=== PATIENT | male | born 1945 | race Caucasian/White ===

== ENCOUNTER → 2017-07-30 10:05 | Outpatient (CLI) | payer MEDICARE, OTHER, SELFPAY ==
[2017-07-30 11:05] LABS: BUN Creatinine Ratio 22.2 (6-22); Blood Urea Nitrogen 20 mg/dL (9-20); Calcium 9.3 mg/dL (8.4-10.2); Carbon Dioxide 30 mmol/L (22-32); Chloride 101 mmol/L (98-107); Estimated Glomerular Filt Rate > 60.0 mL/min (>60); Glucose 81 mg/dL (80-110); HEMOLYSIS < 15 (0-50); Potassium 4.7 mmol/L (3.4-5.1); Sodium 141 mmol/L (137-145)
== END ==
PROVIDERS: Family Provider Internal Medicine Cardiovascular Disease; Visit Provider Nurse Practitioner Family
DX: Z51.81 Encounter for therapeutic drug level monitoring (principal); Z79.899 Other long term (current) drug therapy
CPT/HCPCS: 36415; 80048

== ENCOUNTER → 2017-09-07 12:40 | Outpatient (CLI) | payer MEDICARE, OTHER, SELFPAY ==
[2017-09-07 15:29] LABS: Prothrombin Time 21.9 SECONDS (10.1-12.7)
== END ==
PROVIDERS: Family Provider Internal Medicine Cardiovascular Disease; Visit Provider Internal Medicine Cardiovascular Disease
DX: I48.0 Paroxysmal atrial fibrillation (principal)
CPT/HCPCS: 36415; 85610

== ENCOUNTER → 2018-01-04 16:33 | Outpatient (CLI) | payer MEDICARE, OTHER, SELFPAY ==
[2018-01-04 17:50] LABS: Blood Urea Nitrogen 27 mg/dL (9-20); Calcium 9.6 mg/dL (8.4-10.2); Carbon Dioxide 29 mmol/L (22-32); Chloride 102 mmol/L (98-107); Estimated Glomerular Filt Rate > 60.0 mL/min (>60); Glucose 90 mg/dL (80-110); HEMOLYSIS < 15 (0-50); Potassium 4.6 mmol/L (3.4-5.1); Sodium 142 mmol/L (137-145)
== END ==
PROVIDERS: Family Provider Internal Medicine Cardiovascular Disease; Visit Provider Nurse Practitioner Family
DX: Z51.81 Encounter for therapeutic drug level monitoring (principal); Z79.899 Other long term (current) drug therapy
CPT/HCPCS: 36415; 80048

== ENCOUNTER → 2018-11-09 13:52 | Outpatient (CLI) | payer MEDICARE, OTHER, SELFPAY ==
[2018-11-09 15:02] LABS: B Type Natriuretic Peptide 102 (<100)
[2018-11-09 15:04] LABS: BUN Creatinine Ratio 22.2 (6-22); Blood Urea Nitrogen 20 mg/dL (9-20); Calcium 9.4 mg/dL (8.4-10.2); Carbon Dioxide 28 mmol/L (22-32); Chloride 102 mmol/L (98-107); Estimated Glomerular Filt Rate > 60.0 mL/min (>60); Glucose 91 mg/dL (80-110); HEMOLYSIS 17 (0-50); Potassium 4.3 mmol/L (3.4-5.1); Sodium 140 mmol/L (137-145)
== END ==
PROVIDERS: Visit Provider Nurse Practitioner Family
DX: I50.23 Acute on chronic systolic (congestive) heart failure (principal)
CPT/HCPCS: 36415; 80048; 83880

== ENCOUNTER → 2018-12-02 10:15 | Outpatient (CLI) | payer MEDICARE, OTHER, SELFPAY ==
[2018-12-02 11:53] LABS: BUN Creatinine Ratio 29.2 (6-22); Blood Urea Nitrogen 35 mg/dL (9-20); Calcium 9.5 mg/dL (8.4-10.2); Carbon Dioxide 33 mmol/L (22-32); Chloride 98 mmol/L (98-107); Glucose 87 mg/dL (80-110); HEMOLYSIS < 15 (0-50); Sodium 138 mmol/L (137-145)
== END ==
PROVIDERS: Visit Provider Nurse Practitioner Family
DX: I50.33 Acute on chronic diastolic (congestive) heart failure (principal)
CPT/HCPCS: 36415; 80048

== ENCOUNTER → 2019-04-07 14:37 | Outpatient (CLI) | payer MEDICARE, OTHER, SELFPAY ==
[2019-04-07 15:26] LABS: BUN Creatinine Ratio 27.3 (6-22); Blood Urea Nitrogen 30 mg/dL (9-20); Calcium 9.5 mg/dL (8.4-10.2); Carbon Dioxide 29 mmol/L (22-32); Chloride 103 mmol/L (98-107); Estimated Glomerular Filt Rate > 60.0 mL/min (>60); Glucose 100 mg/dL (80-110); HEMOLYSIS < 15 (0-50); Potassium 4.2 mmol/L (3.4-5.1); Sodium 140 mmol/L (137-145)
== END ==
PROVIDERS: PCP Family Medicine; Referring Provider Nurse Practitioner Family; Visit Provider Nurse Practitioner Family
DX: Z51.81 Encounter for therapeutic drug level monitoring (principal); Z79.899 Other long term (current) drug therapy
CPT/HCPCS: 36415; 80048

== ENCOUNTER → 2019-11-23 11:39 | Outpatient (CLI) | payer MEDICARE, OTHER, SELFPAY ==
[2019-11-23 13:49] LABS: BUN Creatinine Ratio 22.5 (6-22); Blood Urea Nitrogen 23 mg/dL (9-20); Carbon Dioxide 32 mmol/L (22-32); Chloride 100 mmol/L (98-107); Estimated Glomerular Filt Rate > 60.0 mL/min (>60); Glucose 117 mg/dL (80-110); HEMOLYSIS < 15 (0-50); Potassium 4.3 mmol/L (3.4-5.1); Sodium 138 mmol/L (137-145)
== END ==
PROVIDERS: PCP Family Medicine; Referring Provider Nurse Practitioner Family; Visit Provider Nurse Practitioner Family
DX: Z51.81 Encounter for therapeutic drug level monitoring (principal); Z79.899 Other long term (current) drug therapy
CPT/HCPCS: 36415; 80048

== ENCOUNTER → 2019-12-27 11:47 | Outpatient (CLI) | payer MEDICARE, OTHER, SELFPAY ==
[2019-12-29 14:09] LABS: SARS CoV19 IgG Negative (Negative)
== END ==
PROVIDERS: PCP Family Medicine; Referring Provider Family Medicine; Visit Provider Family Medicine
DX: J40 Bronchitis, not specified as acute or chronic (principal)
CPT/HCPCS: 36415; 86769

== ENCOUNTER → 2020-01-02 14:32 | Outpatient (CLI) | payer MEDICARE, OTHER, SELFPAY ==
--- NOTE | 2020-01-02 14:33 | DI.US.S_ITS ---
PROCEDURE: US CAROTID DOPPLER BI INDICATIONS: DIZZINESS TECHNIQUE: Color and pulse Doppler interrogation was performed of both carotid systems, with image documentation and velocity measurements. COMPARISON: [facility], CT, CT HEAD/BRAIN WO CON, 01/02/2020, 14:34. FINDINGS: Stenosis calculations are based on SRU (Society of Radiologists in Ultrasound) criteria. The flow velocities and the arterial waveforms are normal within both carotid arterial systems. Atherosclerotic plaque is seen on both sides. The estimated degree of internal carotid artery stenosis is less than 50%. Antegrade flow is confirmed within both vertebral arteries. IMPRESSION: No hemodynamically significant stenosis is seen. Atherosclerotic plaque is noted bilaterally. Dictated by: Luiz Gant M.D. on 01/02/2020 at 15:12 Approved by: Luiz Gant M.D. on 01/02/2020 at 15:13
--- NOTE | 2020-01-02 14:35 | DI.CT.S_ITS ---
PROCEDURE: CT HEAD/BRAIN WO CON INDICATIONS: Progressive balance disorder, and increasing labyrinthitis w TECHNIQUE: Noncontrast 4.5 mm thick angled axial sections acquired from the foramen magnum to the vertex, with coronal and sagittal reformats. For radiation dose reduction, the following was used: automated exposure control, adjustment of mA and/or kV according to patient size. COMPARISON: [facility], CT, SINUS SCREEN WO CONTRAST, 12/21/2012, 8:52. FINDINGS: Image quality: Excellent. CSF spaces: Basal cisterns are patent. No extra-axial fluid collections. The ventricles are symmetric in size and shape. Brain: No intracranial bleeds or masses. There is cerebral volume loss for age, with resultant ventricular and sulcal prominence. There are periventricular and deep white matter chronic small vessel ischemic changes. There is intracranial internal carotid artery atherosclerosis. Skull and face: Calvarium and visualized facial bones appear intact, without suspicious lesions. Sinuses: Mucous retention cysts are seen within the right maxillary sinus. Visualized sinuses and mastoids are otherwise clear. IMPRESSION: Unremarkable intracranial study for age. If it would be helpful for clinical management decision making, please consider a dedicated brain MRI for further evaluation (assuming that there is no contraindication). Dictated by: Luiz Gant M.D. on 01/02/2020 at 13:52 Approved by: Luiz Gant M.D. on 01/02/2020 at 13:54
== END ==
PROVIDERS: PCP Family Medicine; Referring Provider Family Medicine; Visit Provider Family Medicine
DX: I65.23 Occlusion and stenosis of bilateral carotid arteries (principal); R42 Dizziness and giddiness; H83.09 Labyrinthitis, unspecified ear; R26.89 Other abnormalities of gait and mobility
CPT/HCPCS: 70450; 93880

== ENCOUNTER 2020-02-01 10:30 | Outpatient (RCR) | payer MEDICARE, OTHER, SELFPAY ==
--- NOTE | 2020-01-25 13:27 | PT.OIE ---
Current Diagnoses Other abnormalities of gait and mobility (01/25/20) Past Medical History (Last Updated 12/27/19 @ 16:21 by Kranthi Salcedo DO) Balance disorder Bronchitis Chicken pox History of atrial fibrillation Hypertension Osteoarthritis Visual changes Past Surgical History (Last Updated 03/27/19 @ 21:33 by Shelby Ren) Anesthesia History of cardiac radiofrequency ablation Visit Care Team Role Provider Type Kranthi Salcedo DO Attending Provider Physician Primary Care Provider Referring Provider Specialty: [facility] Address: [address] [place] [address], [facility] Email: [email or web address] Physical Therapy Initial Evaluation PT-OP-A Visit Information Start: 01/25/20 07:23 Freq: Status: Active Protocol: Document 01/25/20 09:07 MB (Rec: 01/25/20 09:33 MB [id number]) Out-Patient Physical Therapy Visit Information Visit Information Visit Type Initial Evaluation Visit Note Medicare Physcial Therapy Visit Start Time 09:07 Visit Stop Time 09:45 Total Visit Minutes 38 Visit Number 1 Evaluation Information Evaluation Date 01/25/20 PT-OP-B Current Condition Start: 01/25/20 07:23 Freq: Status: Active Protocol: Document 01/25/20 09:07 MB (Rec: 01/25/20 09:33 MB [id number]) Current Condition History of Current Condition Onset Date February 2019 Current Complaints Imbalance History of Current Condition In February of 2019, pt had an extreme case of severe bronchitis. He could not lie down to sleep. His coughing happened if he went to lie down. He took antibiotics for 1 week. Since then, he has had balance trouble. If he is walking downhill or uphill, it affects him. If he closes his eyes to take his sweatshirt off, his balance is off. If he goes to look up to the stars, he gets imbalanced. Pt had a COVID antibody test that was negative. He remembers sitting near a lady coughing at a restaurant in January. He has had some further hearing and vision changes since the February event. Pt has fallen a couple of times because his balance was off. He fell in the bushes. He has had 2 falls in the past six months. Four years ago, he had a fall and hit his left hip. He has arthritis and no other injury. Further PMH: a- fib, CHF, short-term memory trouble, pt takes Warfarin, Metroprolol, Doletilide. He had two cardiac ablations d/t a-fib, SOB. Pt states that his BP can run low and he checks his weight each morning. Pt reports occ pelvic area pain when walking and knee arthritis. The pain gets better when he warms up with walking most of the time. Pt denies: prostate issues, history of concussion and whiplash, performance of sit- ups, anemia, B12 deficiency, overhead lifting, eye pressure changes, chiropractor treatment, headache, TMD, neck pain. Pt reports: occ numbness and tingling in the bottom of his feet when he is reclining, pt thinks that his hearing and vision have changed (maybe more since February) as well as progressive memory issues, ear pressure, hearing heart beat in left ear, sinus/ allergy issues, overall weakness and needs a nap after eight hours d/t lack of energy, trouble swallowing for 1-2 years, occ left ear aches . Pt states that he has never had a neurology work-up for his symptoms. Pt states that he is supposed to return to ENT to get shots in his ears to help with the balance problem. Treatment Goals Patient/Caregiver Goals To get my balance better. PT-OP-C Subjective Start: 01/25/20 07:23 Freq: Status: Active Protocol: Document 01/25/20 09:07 MB (Rec: 01/25/20 09:33 MB [id number]) OP-PT Subjective Patient Comments Patient Comments See history of current condition PT-OP-D Balance Start: 01/25/20 07:23 Freq: Status: Active Protocol: Document 01/25/20 09:07 MB (Rec: 01/25/20 10:10 MB [id number]) OP-PT Balance Assessment Sitting Balance Static Sitting Balance Ability Normal Dynamic Sitting Balance Ability Good Sitting Balance Comments Pt uses UE support to scoot to EOB Standing Balance Static Standing Balance Ability Good Dynamic Standing Balance Ability Good Balance Tests Other Other Balance Tests Performed Romberg EO and EC no LOB, more sway with EC. Pt is able to initiate Tandem gait without ataxia and is imbalanced with it Kenney Fall Scale Copyright Permission PT-OP-H Neuro Start: 01/25/20 10:10 Freq: Status: Active Protocol: Document 01/25/20 09:07 MB (Rec: 01/25/20 10:14 MB [id number]) Coordination Evaluation Comments Coordination Comments B rapid pronation and supination WNLs and B heel to tejeda WNLs Vital Signs Comments Vital Signs Comments Orthostatic assessment with BP and HR measured in left brachial artery: supine 128/75 , 52; standing 131/73, 56; standing 30 sec: 123/83, 71; standing 1' 127/77, 55. Pt does not report that he is light-headed with testing PT-OP-J Posture/Palpation/Skin Start: 01/25/20 07:23 Freq: Status: Active Protocol: Document 01/25/20 09:07 MB (Rec: 01/25/20 10:10 MB [id number]) Posture Evaluation Comments Posture Comments Forward head, rounded shoulders PT-OP-K Range of Motion Start: 01/25/20 07:23 Freq: Status: Active Protocol: Document 01/25/20 09:07 MB (Rec: 01/25/20 10:10 MB [id number]) Cervical Spine Range of Motion Cervical Spine Active Testing Position Standing Comments Observed with standing balance today--pt is not stiff with his neck with scanning, talking and mobility and will further address possible cervicogenic components to symptomology in future treatments Shoulder Goniometric Range of Motion Shoulder Left Shoulder ROM WFL Yes Testing Position Standing Comments Functional shoulder flexion is normal B Right Shoulder ROM WFL Yes Testing Position Standing Comments Functional shoulder flexion is normal B Elbow/Forearm Range of Motion Elbow/Forearm Left Elbow/Forearm ROM WFL Yes ROM Testing Position Standing Right Elbow/Forearm ROM WFL Yes ROM Testing Position Standing PT-OP-M Strength Start: 01/25/20 07:23 Freq: Status: Active Protocol: Document 01/25/20 09:07 MB (Rec: 01/25/20 10:10 MB [id number]) Shoulder Strength Shoulder Manual Muscle Testing Left Flexion 3+ Fair+ Right Flexion 3+ Fair+ Knee Strength Knee Manual Muscle Testing Left Flexion (S2) 4 Good Extension (L3) 5 Normal Right Flexion (S2) 4 Good Extension (L3) 5 Normal Ankle/Foot Strength Ankle and Foot Manual Muscle Testing Left Dorsiflexion (L4) 4 Good Right Dorsiflexion (L4) 4 Good PT-OP-O Vestibular Start: 01/25/20 10:10 Freq: Status: Active Protocol: Document 01/25/20 09:07 MB (Rec: 01/25/20 10:11 MB [id number]) Vestibular Assessment Visual Testing Smooth Pursuits Horizontal Normal Smooth Pursuits Vertical Normal Gaze Evoked Nystagmus With Fixation Negative Spontaneous Nystagmus Negative PT-OP-T Assessment and Plan Start: 01/25/20 07:23 Freq: Status: Active Protocol: Document 01/25/20 09:07 MB (Rec: 01/25/20 10:10 MB [id number]) Physical Therapy Assessment Rehab Potential Rehabilitation Potential Fair Evaluation Complexity Number of Personal Factors/Comorbidities 0 Number of Body Systems Impaired 1-2 Clinical Presentation at Evaluation Evolving Impairments Impairments Activity Tolerance,Balance, Functional Activities, Functional Mobility,Gait,Pain, Posture,Soft Tissue Mobility, Strength,Vestibular,Visual Motor Other Impairments Body systems affected include cardiopulmonary, vestibular, and musculoskeletal. His clinical presentation is evolving in setting of cardiac disease. Other Concerns Fall Risk Yes Goals 4 Halfway Goal (LTG) Pt will perform progressive HEP with I including VOR, balance, gait, visual motor, relaxation, postural and flexibility exercises to improve balance and function by 03/27/2020. LTG Duration 8 weeks 3 Settlement Agent Goal (LTG) Pt will gait train at least 1500 feet in 6 minutes to improve ability to walk for exercise and decrease fall risk by 03/27/2020. LTG Duration 8 weeks 2 Halfway Goal (LTG) Pt will peform WNLs on a standardized balance test to decrease fall risk by 03/27/2020 . LTG Duration 8 weeks 1 Halfway Goal (LTG) Pt will deny falls for 2 months to decrease injury risk by 03/27/2020. LTG Duration 8 weeks Assessment Summary Assessment Pt is a 74 y/o male presenting with reports of imbalance since a bad respiratory infection in February (11 months ago). He reports he was dx with bronchitis and treated with anti-biotics. He is concerned that he might have had COVID given severity of the illness and residual symptoms. The symptoms include worsening vision, hearing, memory and imbalance. He reports some vision and memory decline prior the the illness in February and attributes the imbalance to the February illness. He has a history of a -fib, cardiac ablation and CHF and states that he checks his weight and BP daily. His BP can run very low. He is not on fluid restrictions and does take several cardiac medications. Pt's clinical presentation is complicated and so PT evaluation is triaged this date. This therapist suspected orthostasis to be a contributer to his symptoms in the setting of his complaints of generalized weakness and fatigue and reports of heart failure and low BP. Orthostatic testing is negative. This therapist has not yet treated a post-COVID patient and so no clinical frame of reference to those complaints. Pt did also state that his antibody testing was negative, though it was only recently checked. PT will perform further cervical and vestibular screens in future treatments. Oculomotor screen for smooth pursuits was negative, his strength is equally weak in shoulders and his coordination testing is normal today. PT is concerned about reports of fatigue, low/ fluctuating BP, vision changes , trouble swallowing and with memory and wonders if further neurological work-up may be beneficial in the future to rule out things such as PD, as deemed appropriate by referring provider. PT will perform ongoing functional testing including balance, VOR , BPPV and cervicogenic testing and address functional findings as appropriate. The pt will benefit from PT to improve balance, posture and gait and to address any vestibular, visual motor and cervical issues if found. Functional prognosis is fair. He has many medical co- morbidities contributing to his presentation. Physical Therapy Plan Frequency and Duration Frequency of Treatment 2x/Week Duration of Treatment 8 weeks Plan of Care Start Date 01/25/20 Plan of Care End Date 03/27/20 Therapeutic Interventions Therapeutic Interventions Balance Training,Canalithic Repositioning,Coordination Training,Gait Training,Home Exercise Program,Joint Mobilizations,Manual Therapy, Neuromuscular Re-education, Patient/Caregiver Education, Self-Care/Home Management, Sensory Integration,Soft Tissue Mobilization,Taping, Therapeutic Activities, Therapeutic Exercises, Vestibular Rehabilitation Modalities Cold Pack/Ice Massage,Electric Stimulation,Hot Packs, Ultrasound Next Visit Focus/Plan Next Note Type Treatment Note Next Visit Plan Further oculomotor and vestibular testing, ongoing neurological screening as appropriate, formalized balance testing, perhaps FGA
--- NOTE | 2020-01-30 11:21 | PT.OTN ---
Current Diagnoses Other abnormalities of gait and mobility (01/30/20) Physical Therapy Treatment Note PT-OP-A Visit Information Start: 01/25/20 07:23 Freq: Status: Active Protocol: Document 01/30/20 08:17 MB (Rec: 01/30/20 09:40 MB [id number]) Out-Patient Physical Therapy Visit Information Visit Information Visit Type Treatment Note Visit Start Time 08:17 Visit Stop Time 09:40 Total Visit Minutes 83 Visit Number 2 PT-OP-B Current Condition Start: 01/25/20 07:23 Freq: Status: Active Protocol: Document 01/25/20 09:07 MB (Rec: 01/25/20 09:33 MB [id number]) Current Condition History of Current Condition Onset Date February 2019 Current Complaints Imbalance History of Current Condition In February of 2019, pt had an extreme case of severe bronchitis. He could not lie down to sleep. His coughing happened if he went to lie down. He took antibiotics for 1 week. Since then, he has had balance trouble. If he is walking downhill or uphill, it affects him. If he closes his eyes to take his sweatshirt off, his balance is off. If he goes to look up to the stars, he gets imbalanced. Pt had a COVID antibody test that was negative. He remembers sitting near a lady coughing at a restaurant in January. He has had some further hearing and vision changes since the February event. Pt has fallen a couple of times because his balance was off. He fell in the bushes. He has had 2 falls in the past six months. Four years ago, he had a fall and hit his left hip. He has arthritis and no other injury. Further PMH: a- fib, CHF, short-term memory trouble, pt takes Warfarin, Metroprolol, Doletilide. He had two cardiac ablations d/t a-fib, SOB. Pt states that his BP can run low and he checks his weight each morning. Pt reports occ pelvic area pain when walking and knee arthritis. The pain gets better when he warms up with walking most of the time. Pt denies: prostate issues, history of concussion and whiplash, performance of sit- ups, anemia, B12 deficiency, overhead lifting, eye pressure changes, chiropractor treatment, headache, TMD, neck pain. Pt reports: occ numbness and tingling in the bottom of his feet when he is reclining, pt thinks that his hearing and vision have changed (maybe more since February) as well as progressive memory issues, ear pressure, hearing heart beat in left ear, sinus/ allergy issues, overall weakness and needs a nap after eight hours d/t lack of energy, trouble swallowing for 1-2 years, occ left ear aches . Pt states that he has never had a neurology work-up for his symptoms. Pt states that he is supposed to return to ENT to get shots in his ears to help with the balance problem. Treatment Goals Patient/Caregiver Goals To get my balance better. PT-OP-C Subjective Start: 01/25/20 07:23 Freq: Status: Active Protocol: Document 01/30/20 08:17 MB (Rec: 01/30/20 09:40 MB [id number]) OP-PT Subjective Patient Comments Patient Comments I'm okay. Pt states that he missed yesterday's appointment because his 's heart is out of sequence. Pt states that looking up at the stars really messes him up. PT-OP-D Balance Start: 01/25/20 07:23 Freq: Status: Active Protocol: Document 01/25/20 09:07 MB (Rec: 01/25/20 10:10 MB [id number]) OP-PT Balance Assessment Sitting Balance Static Sitting Balance Ability Normal Dynamic Sitting Balance Ability Good Sitting Balance Comments Pt uses UE support to scoot to EOB Standing Balance Static Standing Balance Ability Good Dynamic Standing Balance Ability Good Balance Tests Other Other Balance Tests Performed Romberg EO and EC no LOB, more sway with EC. Pt is able to initiate Tandem gait without ataxia and is imbalanced with it Kenney Fall Scale Copyright Permission PT-OP-H Neuro Start: 01/25/20 10:10 Freq: Status: Active Protocol: Document 01/25/20 09:07 MB (Rec: 01/25/20 10:14 MB [id number]) Coordination Evaluation Comments Coordination Comments B rapid pronation and supination WNLs and B heel to tejeda WNLs Vital Signs Comments Vital Signs Comments Orthostatic assessment with BP and HR measured in left brachial artery: supine 128/75 , 52; standing 131/73, 56; standing 30 sec: 123/83, 71; standing 1' 127/77, 55. Pt does not report that he is light-headed with testing PT-OP-J Posture/Palpation/Skin Start: 01/25/20 07:23 Freq: Status: Active Protocol: Document 01/25/20 09:07 MB (Rec: 01/25/20 10:10 MB [id number]) Posture Evaluation Comments Posture Comments Forward head, rounded shoulders PT-OP-K Range of Motion Start: 01/25/20 07:23 Freq: Status: Active Protocol: Document 01/25/20 09:07 MB (Rec: 01/25/20 10:10 MB [id number]) Cervical Spine Range of Motion Cervical Spine Active Testing Position Standing Comments Observed with standing balance today--pt is not stiff with his neck with scanning, talking and mobility and will further address possible cervicogenic components to symptomology in future treatments Shoulder Goniometric Range of Motion Shoulder Left Shoulder ROM WFL Yes Testing Position Standing Comments Functional shoulder flexion is normal B Right Shoulder ROM WFL Yes Testing Position Standing Comments Functional shoulder flexion is normal B Elbow/Forearm Range of Motion Elbow/Forearm Left Elbow/Forearm ROM WFL Yes ROM Testing Position Standing Right Elbow/Forearm ROM WFL Yes ROM Testing Position Standing PT-OP-M Strength Start: 01/25/20 07:23 Freq: Status: Active Protocol: Document 01/25/20 09:07 MB (Rec: 01/25/20 10:10 MB [id number]) Shoulder Strength Shoulder Manual Muscle Testing Left Flexion 3+ Fair+ Right Flexion 3+ Fair+ Knee Strength Knee Manual Muscle Testing Left Flexion (S2) 4 Good Extension (L3) 5 Normal Right Flexion (S2) 4 Good Extension (L3) 5 Normal Ankle/Foot Strength Ankle and Foot Manual Muscle Testing Left Dorsiflexion (L4) 4 Good Right Dorsiflexion (L4) 4 Good PT-OP-O Vestibular Start: 01/25/20 10:10 Freq: Status: Active Protocol: Document 01/25/20 09:07 MB (Rec: 01/25/20 10:11 MB [id number]) Vestibular Assessment Visual Testing Smooth Pursuits Horizontal Normal Smooth Pursuits Vertical Normal Gaze Evoked Nystagmus With Fixation Negative Spontaneous Nystagmus Negative PT-OP-Q Treatments Start: 01/25/20 07:23 Freq: Status: Active Protocol: Document 01/30/20 08:17 MB (Rec: 01/30/20 09:40 MB [id number]) Therapeutic Exercises Standing Exercises STM racquet ball Side bilateral Comments Intrascapular muscles, active cervical ROM, thoracic pulsing AROM cervical rotation and flexion and extension, pure planes Side bilateral Comments 5 reps and pt performs in sitting and standing today Gait Training Gait Activity 6MWT Comments 1278 feet in 6 minutes and pt presents with occ scuffing of right foot, greater on the carpet and he can correct with cueing. Manual HR checked for one minute in left radial pulse after treatment and pulse is irregular and slow at 61 BPM. Gait assessment Comments Pt presents with right leg functionally longer than the left with gait, occ scuffing his right foot. He scans with his head down and scanning right in front of him. Neuro Re-Education Treatment Other Activities BPPV testing Comments B Roll test and Reginaldo-Hallpike negative for nystagmus and dizziness FGA Comments Overall, pt has slow regular da and this affects scoring for other activities. His gait with EC is very similar to with EO and he reports feeling unconfident. He can perform several steps heel to toe. He has mild change in da and path with horizontal and vertical head turns. He is not confident with backwards walking. Score is 24/30. Self-Care/Home Management Treatment Education Other Education Pt reports that he has to sleep on his right side. If he sleeps on his left side, his heart can kick into a-fib. PT ed pt in benefits of towel roll for cervical support. Pt tends to put small cell phone in his pocket over his left chest and PT ed pt to try in his pant pocket. Ed pt in log rolling to protect neck with moving from supine to side lying to sit. Ed pt in findings today of slow gait, no BPPV, possible cardiac reasons for slowness, cervical tension and good cognition per MOCA. Ed pt in improving non-caffeinated fluid intake. PT-OP-T Assessment and Plan Start: 01/25/20 07:23 Freq: Status: Active Protocol: Document 01/30/20 08:17 MB (Rec: 01/30/20 09:40 MB [id number]) Physical Therapy Assessment Rehab Potential Rehabilitation Potential Fair Evaluation Complexity Number of Personal Factors/Comorbidities 0 Number of Body Systems Impaired 1-2 Clinical Presentation at Evaluation Evolving Impairments Impairments Activity Tolerance,Balance, Functional Activities, Functional Mobility,Gait,Pain, Posture,Soft Tissue Mobility, Strength,Vestibular,Visual Motor Other Impairments Body systems affected include cardiopulmonary, vestibular, and musculoskeletal. His clinical presentation is evolving in setting of cardiac disease. Other Concerns Fall Risk Yes Goals 5 [facility] Goal (LTG) Pt will present with improved active cervical rotation to at least 45 deg B to improve scanning with driving and gait and cervical extension to 25 deg to allow looking up at stars by 04/01/2020. 01/30/2020: AROM flexion 30 deg , extension 15 deg, rotation right 40 deg, left 35 deg LTG Duration 8 weeks 4 [facility]ci Goal (LTG) Pt will perform progressive HEP with I including VOR, balance, gait, visual motor, relaxation, postural and flexibility exercises to improve balance and function by 04/01/2020. 01/30/2020: Initiated HEP today LTG Duration 8 weeks 3 Med Aide Goal (LTG) Pt will gait train at least 1500 feet in 6 minutes to improve ability to walk for exercise and decrease fall risk by 04/01/2020. 01/30/2020: 6MWT 1278 feet today LTG Duration 8 weeks 2 Med Aide Goal (LTG) Pt will peform WNLs on a standardized balance test to decrease fall risk by 04/01/2020 . 01/30/2020: FGA 24/ LTG Duration 8 weeks 1 [facility]ci Goal (LTG) Pt will deny falls for 2 months to decrease injury risk by 04/01/2020. LTG Duration 8 weeks Assessment Summary Assessment BPPV testing today negative for dizziness and nystagmus for B [place]-Hallpike and Roll Test. FGA testing today reflects balance impairment, greatest with head turns, walking with narrow DANNY and walking backwards. Pt reports tripping on his right leg, forgetting to pick it up. He scans with his head down and cues for scannig further out to improve safety and neck movement. AROM cervical rotation right 40 deg and left 35 deg, pt sitting. AROM cervical flexion 30 deg and extension 15 deg in sitting. His HR is slow and irregular after 6MWT. Pt has known history of a-fib. His gait is very slow. PT will add 6MWT and cervical ROM goal to plan. MOCA scoring is normal today and he does have some trouble with visuospatial tasks and delayed recall. PT is concerned about cardiac and possible underlying neuro component to current symptoms. Pt does report visual and hearing changes. He states that he thinks he has allergies and his vision is improving. Will assess VOR in future treatments and provide HEP as appropriate. Con't balance training including cervical exercises and postural exercises and strengthening of LEs. Physical Therapy Plan Frequency and Duration Frequency of Treatment 2x/Week Duration of Treatment 8 weeks Plan of Care Start Date 01/30/20 Plan of Care End Date 04/01/20 Therapeutic Interventions Therapeutic Interventions Balance Training,Canalithic Repositioning,Coordination Training,Gait Training,Home Exercise Program,Joint Mobilizations,Manual Therapy, Neuromuscular Re-education, Patient/Caregiver Education, Self-Care/Home Management, Sensory Integration,Soft Tissue Mobilization,Taping, Therapeutic Activities, Therapeutic Exercises, Vestibular Rehabilitation Modalities Cold Pack/Ice Massage,Electric Stimulation,Hot Packs, Ultrasound Next Visit Focus/Plan Next Note Type Treatment Note Next Visit Plan Check VOR, work on gait speed and then head turns and other balance activites with gait. Continue to check BP and HR with exercises.
--- NOTE | 2020-01-30 11:21 | PT.OPPOC ---
Physical, Occupational & Speech Therapy At [facility] Current Diagnoses Other abnormalities of gait and mobility (01/30/20) Visit Care Team Role Provider Type Kranthi Salcedo DO Attending Provider Physician Primary Care Provider Referring Provider Specialty: Family Practice Address: [address] [place] [address], [id number] Email: [email or web address] Of Care PT-OP-T Assessment and Plan Start: 01/25/20 07:23 Freq: Status: Active Protocol: Document 01/30/20 08:17 MB (Rec: 01/30/20 09:40 MB [id number]) Physical Therapy Assessment Rehab Potential Rehabilitation Potential Fair Evaluation Complexity Number of Personal Factors/Comorbidities 0 Number of Body Systems Impaired 1-2 Clinical Presentation at Evaluation Evolving Impairments Impairments Activity Tolerance,Balance, Functional Activities, Functional Mobility,Gait,Pain, Posture,Soft Tissue Mobility, Strength,Vestibular,Visual Motor Other Impairments Body systems affected include cardiopulmonary, vestibular, and musculoskeletal. His clinical presentation is evolving in setting of cardiac disease. Other Concerns Fall Risk Yes Goals 5 Senior Living Goal (LTG) Pt will present with improved active cervical rotation to at least 45 deg B to improve scanning with driving and gait and cervical extension to 25 deg to allow looking up at stars by 04/01/2020. 01/30/2020: AROM flexion 30 deg , extension 15 deg, rotation right 40 deg, left 35 deg LTG Duration 8 weeks 4 Petrophysical Engineer Goal (LTG) Pt will perform progressive HEP with I including VOR, balance, gait, visual motor, relaxation, postural and flexibility exercises to improve balance and function by 04/01/2020. 01/30/2020: Initiated HEP today LTG Duration 8 weeks 3 Senior Living Goal (LTG) Pt will gait train at least 1500 feet in 6 minutes to improve ability to walk for exercise and decrease fall risk by 04/01/2020. 01/30/2020: 6MWT 1278 feet today LTG Duration 8 weeks 2 Petrophysical Engineer Goal (LTG) Pt will peform WNLs on a standardized balance test to decrease fall risk by 04/01/2020 . 01/30/2020: FGA LTG Duration 8 weeks 1 Senior Living Goal (LTG) Pt will deny falls for 2 months to decrease injury risk by 04/01/2020. LTG Duration 8 weeks Assessment Summary Assessment BPPV testing today negative for dizziness and nystagmus for B Reginaldo-Hallpike and Roll Test. FGA testing today reflects balance impairment, greatest with head turns, walking with narrow DANNY and walking backwards. Pt reports tripping on his right leg, forgetting to pick it up. He scans with his head down and cues for scannig further out to improve safety and neck movement. AROM cervical rotation right 40 deg and left 35 deg, pt sitting. AROM cervical flexion 30 deg and extension 15 deg in sitting. His HR is slow and irregular after 6MWT. Pt has known history of a-fib. His gait is very slow. PT will add 6MWT and cervical ROM goal to plan. MOCA scoring is normal today and he does have some trouble with visuospatial tasks and delayed recall. PT is concerned about cardiac and possible underlying neuro component to current symptoms. Pt does report visual and hearing changes. He states that he thinks he has allergies and his vision is improving. Will assess VOR in future treatments and provide HEP as appropriate. Con't balance training including cervical exercises and postural exercises and strengthening of LEs. Physical Therapy Plan Frequency and Duration Frequency of Treatment 2x/Week Duration of Treatment 8 weeks Plan of Care Start Date 01/30/20 Plan of Care End Date 04/01/20 Therapeutic Interventions Therapeutic Interventions Balance Training,Canalithic Repositioning,Coordination Training,Gait Training,Home Exercise Program,Joint Mobilizations,Manual Therapy, Neuromuscular Re-education, Patient/Caregiver Education, Self-Care/Home Management, Sensory Integration,Soft Tissue Mobilization,Taping, Therapeutic Activities, Therapeutic Exercises, Vestibular Rehabilitation Modalities Cold Pack/Ice Massage,Electric Stimulation,Hot Packs, Ultrasound Next Visit Focus/Plan Next Note Type Treatment Note Next Visit Plan Check VOR, work on gait speed and then head turns and other balance activites with gait. Continue to check BP and HR with exercises. Plan of Care Dates Plan of Care Start Date 01/30/20 Plan of Care End Date 04/01/20 Electronically Signed by: Susanne Britton PT 01/30/20 1121 Please Sign and Return: I have reviewed this Plan of Care and certify that the skilled therapy services above are required to meet the patient?s needs. Physician Signature Date Printed Name and Credentials Clinical Instructor Signature Printed Name and Credentials
--- NOTE | 2020-02-01 11:34 | PT.OTN ---
Current Diagnoses Other abnormalities of gait and mobility (02/01/20) Physical Therapy Treatment Note PT-OP-A Visit Information Start: 01/25/20 07:23 Freq: Status: Active Protocol: Document 02/01/20 10:33 MB (Rec: 02/01/20 11:19 MB [id number]) Out-Patient Physical Therapy Visit Information Visit Information Visit Type Treatment Note Visit Start Time 10:33 Visit Stop Time 11:15 Total Visit Minutes 42 Visit Number 3 PT-OP-B Current Condition Start: 01/25/20 07:23 Freq: Status: Active Protocol: Document 01/25/20 09:07 MB (Rec: 01/25/20 09:33 MB [id number]) Current Condition History of Current Condition Onset Date February 2019 Current Complaints Imbalance History of Current Condition In February of 2019, pt had an extreme case of severe bronchitis. He could not lie down to sleep. His coughing happened if he went to lie down. He took antibiotics for 1 week. Since then, he has had balance trouble. If he is walking downhill or uphill, it affects him. If he closes his eyes to take his sweatshirt off, his balance is off. If he goes to look up to the stars, he gets imbalanced. Pt had a COVID antibody test that was negative. He remembers sitting near a lady coughing at a restaurant in January. He has had some further hearing and vision changes since the February event. Pt has fallen a couple of times because his balance was off. He fell in the bushes. He has had 2 falls in the past six months. Four years ago, he had a fall and hit his left hip. He has arthritis and no other injury. Further PMH: a- fib, CHF, short-term memory trouble, pt takes Warfarin, Metroprolol, Doletilide. He had two cardiac ablations d/t a-fib, SOB. Pt states that his BP can run low and he checks his weight each morning. Pt reports occ pelvic area pain when walking and knee arthritis. The pain gets better when he warms up with walking most of the time. Pt denies: prostate issues, history of concussion and whiplash, performance of sit- ups, anemia, B12 deficiency, overhead lifting, eye pressure changes, chiropractor treatment, headache, TMD, neck pain. Pt reports: occ numbness and tingling in the bottom of his feet when he is reclining, pt thinks that his hearing and vision have changed (maybe more since February) as well as progressive memory issues, ear pressure, hearing heart beat in left ear, sinus/ allergy issues, overall weakness and needs a nap after eight hours d/t lack of energy, trouble swallowing for 1-2 years, occ left ear aches . Pt states that he has never had a neurology work-up for his symptoms. Pt states that he is supposed to return to ENT to get shots in his ears to help with the balance problem. Treatment Goals Patient/Caregiver Goals To get my balance better. PT-OP-C Subjective Start: 01/25/20 07:23 Freq: Status: Active Protocol: Document 02/01/20 10:33 MB (Rec: 02/01/20 11:19 MB [id number]) OP-PT Subjective Patient Comments Patient Comments Pt states that he is going to have to stop therapy until the COVID vaccine comes out. He had two episodes of a-flutter this week. One had one with a- fib. He can feel it and then palpates his carotid. He thinks there is not a correlation with PT activities and this has happened for a long time. He did self- repositioning exercises earlier in the year and he didn't notice any change. He was up on a ladder this summer painting the house and did not get dizzy. It is only with quick head turns. PT-OP-D Balance Start: 01/25/20 07:23 Freq: Status: Active Protocol: Document 01/25/20 09:07 MB (Rec: 01/25/20 10:10 MB [id number]) OP-PT Balance Assessment Sitting Balance Static Sitting Balance Ability Normal Dynamic Sitting Balance Ability Good Sitting Balance Comments Pt uses UE support to scoot to EOB Standing Balance Static Standing Balance Ability Good Dynamic Standing Balance Ability Good Balance Tests Other Other Balance Tests Performed Romberg EO and EC no LOB, more sway with EC. Pt is able to initiate Tandem gait without ataxia and is imbalanced with it Kenney Fall Scale Copyright Permission PT-OP-H Neuro Start: 01/25/20 10:10 Freq: Status: Active Protocol: Document 01/25/20 09:07 MB (Rec: 01/25/20 10:14 MB [id number]) Coordination Evaluation Comments Coordination Comments B rapid pronation and supination WNLs and B heel to tejeda WNLs Vital Signs Comments Vital Signs Comments Orthostatic assessment with BP and HR measured in left brachial artery: supine 128/75 , 52; standing 131/73, 56; standing 30 sec: 123/83, 71; standing 1' 127/77, 55. Pt does not report that he is light-headed with testing PT-OP-J Posture/Palpation/Skin Start: 01/25/20 07:23 Freq: Status: Active Protocol: Document 01/25/20 09:07 MB (Rec: 01/25/20 10:10 MB [id number]) Posture Evaluation Comments Posture Comments Forward head, rounded shoulders PT-OP-K Range of Motion Start: 01/25/20 07:23 Freq: Status: Active Protocol: Document 01/25/20 09:07 MB (Rec: 01/25/20 10:10 MB [id number]) Cervical Spine Range of Motion Cervical Spine Active Testing Position Standing Comments Observed with standing balance today--pt is not stiff with his neck with scanning, talking and mobility and will further address possible cervicogenic components to symptomology in future treatments Shoulder Goniometric Range of Motion Shoulder Left Shoulder ROM WFL Yes Testing Position Standing Comments Functional shoulder flexion is normal B Right Shoulder ROM WFL Yes Testing Position Standing Comments Functional shoulder flexion is normal B Elbow/Forearm Range of Motion Elbow/Forearm Left Elbow/Forearm ROM WFL Yes ROM Testing Position Standing Right Elbow/Forearm ROM WFL Yes ROM Testing Position Standing PT-OP-M Strength Start: 01/25/20 07:23 Freq: Status: Active Protocol: Document 01/25/20 09:07 MB (Rec: 01/25/20 10:10 MB [id number]) Shoulder Strength Shoulder Manual Muscle Testing Left Flexion 3+ Fair+ Right Flexion 3+ Fair+ Knee Strength Knee Manual Muscle Testing Left Flexion (S2) 4 Good Extension (L3) 5 Normal Right Flexion (S2) 4 Good Extension (L3) 5 Normal Ankle/Foot Strength Ankle and Foot Manual Muscle Testing Left Dorsiflexion (L4) 4 Good Right Dorsiflexion (L4) 4 Good PT-OP-O Vestibular Start: 01/25/20 10:10 Freq: Status: Active Protocol: Document 01/25/20 09:07 MB (Rec: 01/25/20 10:11 MB [id number]) Vestibular Assessment Visual Testing Smooth Pursuits Horizontal Normal Smooth Pursuits Vertical Normal Gaze Evoked Nystagmus With Fixation Negative Spontaneous Nystagmus Negative PT-OP-Q Treatments Start: 01/25/20 07:23 Freq: Status: Active Protocol: Document 02/01/20 10:33 MB (Rec: 02/01/20 11:30 MB [id number]) Neuro Re-Education Treatment Vestibular Rehabilitation Eye chart exercises Comments Using eye chart, pt tracking bottom three E with horizontal head turns sitting, standing and Romberg standing , many reps and finally best exercise is looking at bottom E and standing Romberg DVA Testing Comments Pt can read to line 8 with no head movement, reading eye chart. He has a two line difference with horizontal head turns with trouble reading line 6. He has a 5 line difference with vertical head turns. These findings indicate VOR hypofunction and so provided HEP Self-Care/Home Management Treatment Education Other Education Reasoning behind VOR exercises , cervical ROM with trigger point pressure against wall using racquet ball, walking with head turns. Pt to con't these at d/c. PT-OP-T Assessment and Plan Start: 01/25/20 07:23 Freq: Status: Active Protocol: Document 02/01/20 10:33 MB (Rec: 02/01/20 11:33 MB [id number]) Physical Therapy Assessment Rehab Potential Rehabilitation Potential Fair Evaluation Complexity Number of Personal Factors/Comorbidities 0 Number of Body Systems Impaired 1-2 Clinical Presentation at Evaluation Evolving Impairments Impairments Activity Tolerance,Balance, Functional Activities, Functional Mobility,Gait,Pain, Posture,Soft Tissue Mobility, Strength,Vestibular,Visual Motor Other Impairments Body systems affected include cardiopulmonary, vestibular, and musculoskeletal. His clinical presentation is evolving in setting of cardiac disease. Other Concerns Fall Risk Yes Goals 5 Care Home Goal (LTG) Pt will present with improved active cervical rotation to at least 45 deg B to improve scanning with driving and gait and cervical extension to 25 deg to allow looking up at stars by 04/01/2020. 01/30/2020: AROM flexion 30 deg , extension 15 deg, rotation right 40 deg, left 35 deg LTG Duration 8 weeks 4 Health Counselor Goal (LTG) Pt will perform progressive HEP with I including VOR, balance, gait, visual motor, relaxation, postural and flexibility exercises to improve balance and function by 04/01/2020. 02/01/2020: Added VOR exercises and head turns/ scanning with gait to HEP LTG Duration 8 weeks 3 Health Counselor Goal (LTG) Pt will gait train at least 1500 feet in 6 minutes to improve ability to walk for exercise and decrease fall risk by 04/01/2020. 01/30/2020: 6MWT 1278 feet today LTG Duration 8 weeks 2 Care Home Goal (LTG) Pt will peform WNLs on a standardized balance test to decrease fall risk by 04/01/2020 . 01/30/2020: FGA 24/30 LTG Duration 8 weeks 1 Care Home Goal (LTG) Pt will deny falls for 2 months to decrease injury risk by 04/01/2020. 02/01/2020: Pt has not had any falls since starting PT LTG Duration 8 weeks Assessment Summary Assessment Pt is concerned about his COVID risk and states that he needs to stop therapy until a vaccine is available and until 2 week after he has received it. PT encourages pt that PT understands this. Provided VOR and balance exercise today for pt to perform at home. Will d/c PT. Physical Therapy Plan Frequency and Duration Frequency of Treatment 2x/Week Duration of Treatment 8 weeks Plan of Care Start Date 01/30/20 Plan of Care End Date 04/01/20 Therapeutic Interventions Therapeutic Interventions Balance Training,Canalithic Repositioning,Coordination Training,Gait Training,Home Exercise Program,Joint Mobilizations,Manual Therapy, Neuromuscular Re-education, Patient/Caregiver Education, Self-Care/Home Management, Sensory Integration,Soft Tissue Mobilization,Taping, Therapeutic Activities, Therapeutic Exercises, Vestibular Rehabilitation Modalities Cold Pack/Ice Massage,Electric Stimulation,Hot Packs, Ultrasound Discharge Physical Therapy Discharge Reasons Patient Request Discharge Comments Pt concerned about COVID and would like to get vaccine before continuing therapy.
== END 2020-03-01 15:13 ==
LOC: PHYS 10:30
PROVIDERS: PCP Family Medicine; Referring Provider Family Medicine; Visit Provider Family Medicine
DX: R26.89 Other abnormalities of gait and mobility (principal)
CPT/HCPCS: 97110; 97112; 97116; 97162; 97535

== ENCOUNTER → 2020-02-07 09:17 | Outpatient (CLI) | payer MEDICARE, OTHER, SELFPAY ==
[2020-02-07 10:27] LABS: BUN Creatinine Ratio 25.5 (6-22); Blood Urea Nitrogen 26 mg/dL (9-20); Carbon Dioxide 36 mmol/L (22-32); Chloride 100 mmol/L (98-107); Estimated Glomerular Filt Rate > 60.0 mL/min (>60); Glucose 85 mg/dL (80-110); HEMOLYSIS < 15 (0-50); Sodium 139 mmol/L (137-145)
== END ==
PROVIDERS: PCP Family Medicine; Referring Provider Family Medicine; Visit Provider Nurse Practitioner Family
DX: Z51.81 Encounter for therapeutic drug level monitoring (principal); Z79.899 Other long term (current) drug therapy
CPT/HCPCS: 36415; 80048

== ENCOUNTER → 2020-05-03 08:45 | Outpatient (CLI) | payer MEDICARE, OTHER, SELFPAY ==
[2020-05-03 10:11] LABS: BUN Creatinine Ratio 28.8 (6-22); Blood Urea Nitrogen 34 mg/dL (9-20); Calcium 9.1 mg/dL (8.4-10.2); Carbon Dioxide 32 mmol/L (22-32); Chloride 99 mmol/L (98-107); Estimated Glomerular Filt Rate > 60.0 mL/min (>60); Glucose 121 mg/dL (80-110); HEMOLYSIS 23 (0-50); Potassium 3.9 mmol/L (3.4-5.1); Sodium 137 mmol/L (137-145)
== END ==
PROVIDERS: PCP Family Medicine; Referring Provider Nurse Practitioner Family; Visit Provider Nurse Practitioner Family
DX: Z51.81 Encounter for therapeutic drug level monitoring (principal); Z79.899 Other long term (current) drug therapy
CPT/HCPCS: 36415; 80048

== ENCOUNTER → 2020-08-01 14:07 | Outpatient (CLI) | payer MEDICARE, OTHER, SELFPAY ==
[2020-08-01 15:14] LABS: Blood Urea Nitrogen 24 mg/dL (9-20); Carbon Dioxide 31 mmol/L (22-32); Chloride 103 mmol/L (98-107); Estimated Glomerular Filt Rate > 60.0 mL/min (>60); HEMOLYSIS < 15 (0-50); Sodium 138 mmol/L (137-145)
[2020-08-01 16:25] LABS: Glucose 80 mg/dL (80-110)
== END ==
PROVIDERS: PCP Family Medicine; Referring Provider Nurse Practitioner Family; Visit Provider Nurse Practitioner Family
DX: Z51.81 Encounter for therapeutic drug level monitoring (principal); Z79.899 Other long term (current) drug therapy
CPT/HCPCS: 36415; 80048

== ENCOUNTER → 2020-10-14 15:40 | Outpatient (CLI) | payer MEDICARE, OTHER, SELFPAY | PROVIDERS: PCP Family Medicine; Referring Provider Nurse Practitioner Family; Visit Provider Nurse Practitioner Family | DX: I48.91 Unspecified atrial fibrillation (principal) ==

== ENCOUNTER → 2020-10-14 15:42 | Outpatient (CLI) | payer MEDICARE, OTHER, SELFPAY ==
[2020-10-14 17:54] LABS: Vitamin B12 Reflex MMA if <400 473 pg/mL (239-931)
[2020-10-19 15:24] LABS: 1,25-Dihydroxy, Vitamin D-2 <10 pg/mL (.)
== END ==
PROVIDERS: PCP Family Medicine; Referring Provider Psychiatry & Neurology Neurology; Visit Provider Psychiatry & Neurology Neurology
DX: R41.3 Other amnesia (principal); E55.9 Vitamin D deficiency, unspecified; I48.91 Unspecified atrial fibrillation
CPT/HCPCS: 36415; 82607; 82652; 84443

== ENCOUNTER → 2021-03-26 10:32 | Outpatient (CLI) | payer MEDICARE, OTHER, SELFPAY ==
[2021-03-26 11:37] LABS: BUN Creatinine Ratio 27.5 (6-22); Blood Urea Nitrogen 28 mg/dL (9-20); Calcium 9.1 mg/dL (8.4-10.2); Carbon Dioxide 32 mmol/L (22-32); Chloride 103 mmol/L (98-107); Estimated Glomerular Filt Rate > 60.0 mL/min (>60); Glucose 126 mg/dL (80-110); HEMOLYSIS 17 (0-50); Potassium 4.3 mmol/L (3.4-5.1); Sodium 139 mmol/L (137-145)
== END ==
PROVIDERS: PCP Family Medicine; Referring Provider Nurse Practitioner Family; Visit Provider Nurse Practitioner Family
DX: Z51.81 Encounter for therapeutic drug level monitoring (principal); Z79.899 Other long term (current) drug therapy
CPT/HCPCS: 36415; 80048

== ENCOUNTER → 2021-07-25 08:37 | Outpatient (CLI) | payer MEDICARE, OTHER, SELFPAY ==
[2021-07-25 09:41] LABS: BUN Creatinine Ratio 25.6 (6-22); Blood Urea Nitrogen 23 mg/dL (9-20); Calcium 8.8 mg/dL (8.4-10.2); Carbon Dioxide 27 mmol/L (22-32); Chloride 105 mmol/L (98-107); Estimated Glomerular Filt Rate > 60 mL/min (>60); Glucose 91 mg/dL (80-110); HEMOLYSIS < 15 (0-50); Potassium 4.4 mmol/L (3.4-5.1); Sodium 140 mmol/L (137-145)
== END ==
PROVIDERS: PCP Family Medicine; Referring Provider Nurse Practitioner Family; Visit Provider Nurse Practitioner Family
DX: Z51.81 Encounter for therapeutic drug level monitoring (principal); Z79.899 Other long term (current) drug therapy
CPT/HCPCS: 36415; 80048

== ENCOUNTER → 2021-12-26 08:04 | Outpatient (CLI) | payer MEDICARE, OTHER, SELFPAY ==
[2021-12-26 08:52] LABS: BUN Creatinine Ratio 24.2 (6-22); Blood Urea Nitrogen 23 mg/dL (9-20); Calcium 8.9 mg/dL (8.4-10.2); Carbon Dioxide 33 mmol/L (22-32); Chloride 101 mmol/L (98-107); Estimated Glomerular Filt Rate > 60 mL/min (>60); Glucose 94 mg/dL (80-110); HEMOLYSIS < 15 (0-50); Magnesium 2.1 mg/dL (1.6-2.3); Sodium 140 mmol/L (137-145)
== END ==
PROVIDERS: PCP Family Medicine; Referring Provider Nurse Practitioner Family; Visit Provider Nurse Practitioner Family
DX: Z79.899 Other long term (current) drug therapy (principal); Z51.81 Encounter for therapeutic drug level monitoring
CPT/HCPCS: 36415; 80048; 83735

== ENCOUNTER → 2022-03-25 10:27 | Outpatient (CLI) | payer MEDICARE, OTHER, SELFPAY ==
[2022-03-25 13:22] LABS: Blood Urea Nitrogen 23 mg/dL (9-20); Carbon Dioxide 33 mmol/L (22-32); Chloride 99 mmol/L (98-107); Estimated Glomerular Filt Rate > 60 mL/min (>60); Glucose 80 mg/dL (80-110); HEMOLYSIS < 15 (0-50); Magnesium 2.1 mg/dL (1.6-2.3); Potassium 4.6 mmol/L (3.4-5.1); Sodium 140 mmol/L (137-145)
== END ==
PROVIDERS: PCP Family Medicine; Referring Provider Nurse Practitioner Family; Visit Provider Nurse Practitioner Family
DX: Z79.899 Other long term (current) drug therapy (principal); Z51.81 Encounter for therapeutic drug level monitoring
CPT/HCPCS: 36415; 80048; 83735

== ENCOUNTER → 2022-06-29 10:36 | Outpatient (CLI) | payer MEDICARE, OTHER, SELFPAY ==
[2022-06-29 12:17] LABS: BUN Creatinine Ratio 23.4 (6-22); Blood Urea Nitrogen 26 mg/dL (9-20); Calcium 9.1 mg/dL (8.4-10.2); Carbon Dioxide 33 mmol/L (22-32); Chloride 98 mmol/L (98-107); Estimated Glomerular Filt Rate > 60 mL/min (>60); Glucose 63 mg/dL (80-110); HEMOLYSIS < 15 (0-50); Magnesium 2.2 mg/dL (1.6-2.3); Potassium 4.1 mmol/L (3.4-5.1); Sodium 139 mmol/L (137-145)
== END ==
PROVIDERS: PCP Family Medicine; Referring Provider Nurse Practitioner Family; Visit Provider Nurse Practitioner Family
DX: Z51.81 Encounter for therapeutic drug level monitoring (principal); Z79.899 Other long term (current) drug therapy
CPT/HCPCS: 36415; 80048; 83735

== ENCOUNTER → 2022-07-10 07:30 | Outpatient (CLI) | payer MEDICARE, OTHER, SELFPAY ==
[2022-07-10 08:35] LABS: COVID-19 CEPHEID 4-PLEX PCR Negative (Negative); Influenza A - CEPHEID Flu A NEGATIVE (NEGATIVE); Influenza B - CEPHEID Flu B NEGATIVE (NEGATIVE); Respiratory Syncytial Virus Negative (Negative)
== END ==
PROVIDERS: PCP Family Medicine; Visit Provider Nurse Practitioner Family
DX: J06.9 Acute upper respiratory infection, unspecified (principal); Z20.822 Contact with and (suspected) exposure to COVID-19
CPT/HCPCS: 0241U

== ENCOUNTER → 2022-07-15 12:49 | Outpatient (CLI) | payer MEDICARE, OTHER, SELFPAY ==
--- NOTE | 2022-07-15 12:54 | DI.RAD.S_ITS ---
PROCEDURE: XR CHEST 2V INDICATIONS: CHRONIC HEART FAILURE TECHNIQUE: 2 views of the chest were acquired. COMPARISON: [facility], , CHEST 2 VIEW, 05/15/2011, 8:46. FINDINGS: Surgical changes and devices: None. Lungs and pleura: Lungs are clear. No pleural effusions or pneumothorax. Mediastinum: Mediastinal contours are normal. Heart size is normal. Bones and chest wall: No suspicious bony abnormalities. Soft tissues appear unremarkable. IMPRESSION: No acute cardiopulmonary abnormality. Dictated by: En Vuong M.D. on 07/15/2022 at 15:05 Approved by: En Vuong M.D. on 07/15/2022 at 15:06
[2022-07-15 14:10] LABS: BUN Creatinine Ratio 20.9 (6-22); Blood Urea Nitrogen 19 mg/dL (9-20); Calcium 8.8 mg/dL (8.4-10.2); Carbon Dioxide 33 mmol/L (22-32); Chloride 99 mmol/L (98-107); Estimated Glomerular Filt Rate > 60 mL/min (>60); Glucose 93 mg/dL (80-110); HEMOLYSIS < 15 (0-50); Magnesium 2.1 mg/dL (1.6-2.3); Potassium 3.5 mmol/L (3.4-5.1); Sodium 138 mmol/L (137-145)
[2022-07-15 14:19] LABS: NT-proBNP (BNP-Adult 18+) 628 pg/mL (<450)
== END ==
PROVIDERS: PCP Family Medicine; Referring Provider Nurse Practitioner; Visit Provider Nurse Practitioner
DX: I50.32 Chronic diastolic (congestive) heart failure (principal); R06.02 Shortness of breath
CPT/HCPCS: 36415; 71046; 80048; 83735; 83880

== ENCOUNTER 2022-10-28 12:00 | Outpatient (RCR) | payer MEDICARE, OTHER, SELFPAY ==
--- NOTE | 2022-10-14 17:19 | PT.OIE ---
Current Diagnoses Unsteadiness on feet (10/14/22) Other abnormalities of gait and mobility (10/14/22) Dizziness and giddiness (10/14/22) Past Medical History (Last Updated 12/27/19 @ 16:21 by Kranthi Salcedo DO) Balance disorder Bronchitis Chicken pox History of atrial fibrillation Hypertension Osteoarthritis Visual changes Past Surgical History (Last Updated 03/27/19 @ 21:33 by Shelby Ren) Anesthesia History of cardiac radiofrequency ablation Visit Care Team Role Provider Type Kranthi Salcedo DO Family Provider Physician Primary Care Provider Specialty: Family Practice Address: [address] [place] [address], [id number] Email: [email or web address] Stefan Burrows MD Attending Provider Non-Staff Referring Provider Specialty: Neurology Address: [address] [place] [address], [id number] Email: Physical Therapy Initial Evaluation PT-OP-A Visit Information Start: 10/14/22 16:57 Freq: Status: Active Protocol: Document 10/14/22 12:00 DCW (Rec: 10/14/22 17:19 DCW [id number]) Out-Patient Physical Therapy Visit Information Visit Information Visit Type Initial Evaluation Visit Start Time 12:00 Visit Stop Time 12:45 Total Visit Minutes 45 Visit Number 1 Number of PERSONAL COACH Visits 0 Evaluation Information Evaluation Date 10/14/22 PT-OP-B Current Condition Start: 10/14/22 16:57 Freq: Status: Active Protocol: Document 10/14/22 12:00 DCW (Rec: 10/14/22 17:19 DCW [id number]) Current Condition History of Current Condition Onset Date 4 year history Current Complaints Imbalance with quick head movements History of Current Condition Pt is a 77 year old male complaining of a four year history of motion-induced imbalance. Pt reports episodes last just a few seconds. Symptoms are provoked by quick head turns, getting up quickly, or looking up at stars. Does note has been a little worse recently, has been feeling his nose and ears have been more stuffed up, potentially due to allergies. Pt denies any rotational vertigo. Pt denies recent tinnitus, diplopia, dysarthria , or discoordination. Pt reports symptoms are waxing/ waning in nature. Pt does report a long history of a-fib . 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 PT-OP-C Subjective Start: 10/14/22 16:57 Freq: Status: Active Protocol: Document 10/14/22 12:00 DCW (Rec: 10/14/22 17:19 DCW [id number]) OP-PT Subjective Patient Comments Patient Comments I just got new heart medications last month, I'm not sure if any recent changes have been due to that or I'm just a little stuffed up from allergies. Patient Questionnaires Dizziness Handicap Inventory DHI Score 12% DHI Functional Impairment 1 to 19% Impaired (Score 1-19) PT-OP-O Vestibular Start: 10/14/22 16:57 Freq: Status: Active Protocol: Document 10/14/22 12:00 DCW (Rec: 10/14/22 17:19 DCW [id number]) Vestibular Assessment Auditory Tests Ruiz Test Within normal limits Rinne Test Negative Air Conduction Results Equal Visual Testing Smooth Pursuits Horizontal WNL Smooth Pursuits Vertical WNL Saccades Horizontal WNL Saccades Vertical WNL Heave Test Positive Bilateral Thrust Head Positive Bilateral DVA (Line Degradation) 4 Vestibular Function Tests Fukuda Test 30? R turn CTSIB Position 1 30 seconds, Mild sway CTSIB Position 2 30 seconds, Mild sway CTSIB Position 3 30 seconds, Mild sway CTSIB Position 4 30 seconds, Moderate sway CTSIB Position 5 Fall Reaction CTSIB Position 6 Fall Reaction PT-OP-Q Treatments Start: 10/14/22 16:57 Freq: Status: Active Protocol: Document 10/14/22 12:00 DCW (Rec: 10/14/22 17:19 DCW [id number]) Neuro Re-Education Treatment Vestibular Rehabilitation Corrective Saccades Details Eyes, then head to target Distance From Target Arm's length Speed as tolerated Position seated X2 Viewing Details Head and target moving opposite directions Distance From Target Arm's length Speed as tolerated Position seated X1 Viewing Details Static target, moving head Distance From Target Arm's length Speed as tolerated Position seated VOR Retraining Details Target and head moving together Distance From Target Arm's length Speed as tolerated Position seated PT-OP-T Assessment and Plan Start: 10/14/22 16:57 Freq: Status: Active Protocol: Document 10/14/22 12:00 DCW (Rec: 10/14/22 17:19 DCW [id number]) Physical Therapy Assessment Rehab Potential Rehabilitation Potential Good Evaluation Complexity Number of Personal Factors/Comorbidities 1-2 Number of Body Systems Impaired 3 Clinical Presentation at Evaluation Unstable Impairments Impairments Balance,Coordination, Functional Activities, Vestibular Goals Two Impairment Pt feels off balance when looking up at the dinesh Usp Goal (LTG) Pt to report no loss of balance or feeling of instability with quick head turns over a full week. LTG Duration 12/14/22 One Impairment Pt does not have an appropriate home exercise program Short Term Goal (STG) Pt to be independent and compliant with an appropriate HEP STG Duration 11/14/22 Assessment Summary Assessment Pt's vestibular examination largely negative today for any specific inner ear disorder, although pt does show signs of significant presbystasis, or age-related vestibular loss. Pt shows positive thrust and heave tests bilaterally, and has difficulty with Dynamic visual acuity. Additionally struggles to maintain balance during CTSIB when challenged with decreased proprioception and either removal of vision or addition of visual conflict . Pt will likely benefit from skilled vestibular rehabilitation focusing on improving VOR and habituation/ adaptation exercises. Physical Therapy Plan Frequency and Duration Frequency of Treatment 1-2x/week Plan of Care Start Date 10/14/22 Plan of Care End Date 12/14/22 Therapeutic Interventions Therapeutic Interventions Balance Training,Canalithic Repositioning,Home Exercise Program,Neuromuscular Re- education,Patient/Caregiver Education,Self-Care/Home Management,Therapeutic Activities,Therapeutic Exercises,Vestibular Rehabilitation Next Visit Focus/Plan Next Note Type Treatment Note Next Visit Plan Vestibular therapy, positional testing if indicated
--- NOTE | 2022-10-14 17:20 | PT.OPPOC ---
Physical, Occupational & Speech Therapy At [facility] Current Diagnoses Unsteadiness on feet (10/14/22) Other abnormalities of gait and mobility (10/14/22) Dizziness and giddiness (10/14/22) Visit Care Team Role Provider Type Kranthi Salcedo DO Family Provider Physician Primary Care Provider Specialty: Family Practice Address: [address] [place] [address], [id number] Email: [email or web address] Stefan Burrows MD Attending Provider Non-Staff Referring Provider Specialty: Neurology Address: [address] [place] [address], [id number] Email: Plan Of Care PT-OP-T Assessment and Plan Start: 10/14/22 16:57 Freq: Status: Active Protocol: Document 10/14/22 12:00 DCW (Rec: 10/14/22 17:19 DCW [id number]) Physical Therapy Assessment Rehab Potential Rehabilitation Potential Good Evaluation Complexity Number of Personal Factors/Comorbidities 1-2 Number of Body Systems Impaired 3 Clinical Presentation at Evaluation Unstable Impairments Impairments Balance,Coordination, Functional Activities, Vestibular Goals Two Impairment Pt feels off balance when looking up at the dinesh Veneer Supervisor Goal (LTG) Pt to report no loss of balance or feeling of instability with quick head turns over a full week. LTG Duration 12/14/22 One Impairment Pt does not have an appropriate home exercise program Short Term Goal (STG) Pt to be independent and compliant with an appropriate HEP STG Duration 11/14/22 Assessment Summary Assessment Pt's vestibular examination largely negative today for any specific inner ear disorder, although pt does show signs of significant presbystasis, or age-related vestibular loss. Pt shows positive thrust and heave tests bilaterally, and has difficulty with Dynamic visual acuity. Additionally struggles to maintain balance during CTSIB when challenged with decreased proprioception and either removal of vision or addition of visual conflict . Pt will likely benefit from skilled vestibular rehabilitation focusing on improving VOR and habituation/ adaptation exercises. Physical Therapy Plan Frequency and Duration Frequency of Treatment 1-2x/week Plan of Care Start Date 10/14/22 Plan of Care End Date 12/14/22 Therapeutic Interventions Therapeutic Interventions Balance Training,Canalithic Repositioning,Home Exercise Program,Neuromuscular Re- education,Patient/Caregiver Education,Self-Care/Home Management,Therapeutic Activities,Therapeutic Exercises,Vestibular Rehabilitation Next Visit Focus/Plan Next Note Type Treatment Note Next Visit Plan Vestibular therapy, positional testing if indicated Plan of Care Dates Plan of Care Start Date 10/14/22 Plan of Care End Date 12/14/22 Electronically Signed by: Hamlet Ahuja, PT 10/14/22 [id number] If you are in agreement with this Plan of Care, please return a signed and dated copy. I have reviewed this Plan of Care and certify that the skilled therapy services above are required to meet the patient?s needs. Physician Signature Date Printed Name and Credentials Clinical Instructor Signature Printed Name and Credentials
--- NOTE | 2022-10-22 12:56 | PT.OTN ---
Current Diagnoses Unsteadiness on feet (10/22/22) Other abnormalities of gait and mobility (10/22/22) Dizziness and giddiness (10/22/22) Physical Therapy Treatment Note PT-OP-A Visit Information Start: 10/14/22 16:57 Freq: Status: Active Protocol: Document 10/22/22 12:00 DCW (Rec: 10/22/22 12:56 DCW [id number]) Out-Patient Physical Therapy Visit Information Visit Information Visit Type Treatment Note Visit Start Time 12:00 Visit Stop Time 12:45 Total Visit Minutes 45 Visit Number 2 Number of PIN SETTER Visits 0 Evaluation Information Evaluation Date 10/14/22 PT-OP-B Current Condition Start: 10/14/22 16:57 Freq: Status: Active Protocol: Document 10/14/22 12:00 DCW (Rec: 10/14/22 17:19 DCW [id number]) Current Condition History of Current Condition Onset Date 4 year history Current Complaints Imbalance with quick head movements History of Current Condition Pt is a 77 year old male complaining of a four year history of motion-induced imbalance. Pt reports episodes last just a few seconds. Symptoms are provoked by quick head turns, getting up quickly, or looking up at stars. Does note has been a little worse recently, has been feeling his nose and ears have been more stuffed up, potentially due to allergies. Pt denies any rotational vertigo. Pt denies recent tinnitus, diplopia, dysarthria , or discoordination. Pt reports symptoms are waxing/ waning in nature. Pt does report a long history of a-fib . Prior Treatments and Tests Was previously seen at this facility in winter 2019 for the same symptoms, however after three visits, requested discharge, as his surgical oncologist didn't want him to risk any further Covid exposure due to ongoing heart concerns. PT-OP-C Subjective Start: 10/14/22 16:57 Freq: Status: Active Protocol: Document 10/22/22 12:00 DCW (Rec: 10/22/22 12:56 DCW [id number]) OP-PT Subjective Patient Comments Patient Comments I have been doing the exercises, but I think I'm doing #4 wrong, it's too easy. PT-OP-D Balance Start: 10/14/22 16:57 Freq: Status: Active Protocol: Document 10/22/22 12:00 DCW (Rec: 10/22/22 12:56 DCW [id number]) Balance Tests Whitaker Balance Test Whitaker Balance Test Score 51/56 PT-OP-E Functional Tests Start: 10/22/22 12:56 Freq: Status: Active Protocol: Document 10/22/22 12:00 DCW (Rec: 10/22/22 12:56 DCW [id number]) Functional Tests Functional Gait Assessment Score 26/30 Functional Gait Assessment Impairment 1 to <20% Impaired (Score 25- Rating 29) PT-OP-O Vestibular Start: 10/14/22 16:57 Freq: Status: Active Protocol: Document 10/14/22 12:00 DCW (Rec: 10/14/22 17:19 DCW [id number]) Vestibular Assessment Auditory Tests Ruiz Test Within normal limits Rinne Test Negative Air Conduction Results Equal Visual Testing Smooth Pursuits Horizontal WNL Smooth Pursuits Vertical WNL Saccades Horizontal WNL Saccades Vertical WNL Heave Test Positive Bilateral Thrust Head Positive Bilateral DVA (Line Degradation) 4 Vestibular Function Tests Fukuda Test 30? R turn CTSIB Position 1 30 seconds, Mild sway CTSIB Position 2 30 seconds, Mild sway CTSIB Position 3 30 seconds, Mild sway CTSIB Position 4 30 seconds, Moderate sway CTSIB Position 5 Fall Reaction CTSIB Position 6 Fall Reaction PT-OP-Q Treatments Start: 10/14/22 16:57 Freq: Status: Active Protocol: Document 10/22/22 12:00 DCW (Rec: 10/22/22 12:56 DCW [id number]) Gym Equipment Shuttle Balance Red Details WBOS, Staggered Neuro Re-Education Treatment Balance Activities Head Turns Details Ambulation with Head Turns Comments Metronome 90 BPM Ball/Cone Transfers Details Ball/cone transfers FGA Details Whitaker Details 5156 Vestibular Rehabilitation Corrective Saccades Details Eyes, then head to target Distance From Target Arm's length Speed as tolerated Position seated PT-OP-T Assessment and Plan Start: 10/14/22 16:57 Freq: Status: Active Protocol: Document 10/22/22 12:00 DCW (Rec: 10/22/22 12:56 DCW [id number]) Physical Therapy Assessment Impairments Impairments Balance,Coordination, Functional Activities, Vestibular Goals Two Impairment Pt feels off balance when looking up at the [facility] Goal (LTG) Pt to report no loss of balance or feeling of instability with quick head turns over a full week. LTG Duration 12/14/22 One Impairment Pt does not have an appropriate home exercise program Short Term Goal (STG) Pt to be independent and compliant with an appropriate HEP STG Duration 11/14/22 Assessment Summary Assessment Pt did very well with balance testing today, scored 51/56 on Whitaker Balance and 26/30 on FGA . Struggled the most with head turns during ambulation, especially with attempted increased metronome speed to 110 bpm. Pt doing well with compliance to HEP so far. Physical Therapy Plan Frequency and Duration Frequency of Treatment 1-2x/week Plan of Care Start Date 10/14/22 Plan of Care End Date 12/14/22 Therapeutic Interventions Therapeutic Interventions Balance Training,Canalithic Repositioning,Home Exercise Program,Neuromuscular Re- education,Patient/Caregiver Education,Self-Care/Home Management,Therapeutic Activities,Therapeutic Exercises,Vestibular Rehabilitation Next Visit Focus/Plan Next Note Type Treatment Note Next Visit Plan Vestibular therapy, positional testing if indicated
--- NOTE | 2022-10-28 12:44 | PT.OTN ---
Current Diagnoses Unsteadiness on feet (10/28/22) Other abnormalities of gait and mobility (10/28/22) Dizziness and giddiness (10/28/22) Physical Therapy Treatment Note PT-OP-A Visit Information Start: 10/14/22 16:57 Freq: Status: Active Protocol: Document 10/28/22 12:00 DCW (Rec: 10/28/22 12:43 DCW [id number]) Out-Patient Physical Therapy Visit Information Visit Information Visit Type Discharge Summary Visit Start Time 12:00 Visit Stop Time 12:45 Total Visit Minutes 45 Visit Number 3 Number of NETWORK SUPPORT ANALYST Visits 0 Evaluation Information Evaluation Date 10/14/22 PT-OP-B Current Condition Start: 10/14/22 16:57 Freq: Status: Active Protocol: Document 10/14/22 12:00 DCW (Rec: 10/14/22 17:19 DCW [id number]) Current Condition History of Current Condition Onset Date 4 year history Current Complaints Imbalance with quick head movements History of Current Condition Pt is a 77 year old male complaining of a four year history of motion-induced imbalance. Pt reports episodes last just a few seconds. Symptoms are provoked by quick head turns, getting up quickly, or looking up at stars. Does note has been a little worse recently, has been feeling his nose and ears have been more stuffed up, potentially due to allergies. Pt denies any rotational vertigo. Pt denies recent tinnitus, diplopia, dysarthria , or discoordination. Pt reports symptoms are waxing/ waning in nature. Pt does report a long history of a-fib . 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 PT-OP-C Subjective Start: 10/14/22 16:57 Freq: Status: Active Protocol: Document 10/28/22 12:00 DCW (Rec: 10/28/22 12:43 DCW [id number]) OP-PT Subjective Patient Comments Patient Comments I can't say that these exercises have worked a miracle or anything. PT-OP-D Balance Start: 10/14/22 16:57 Freq: Status: Active Protocol: Document 10/22/22 12:00 DCW (Rec: 10/22/22 12:56 DCW [id number]) Balance Tests Whitaker Balance Test Whitaker Balance Test Score 51/56 PT-OP-E Functional Tests Start: 10/22/22 12:56 Freq: Status: Active Protocol: Document 10/22/22 12:00 DCW (Rec: 10/22/22 12:56 DCW [id number]) Functional Tests Functional Gait Assessment Score 26/30 Functional Gait Assessment Impairment 1 to <20% Impaired (Score 25- Rating 29) PT-OP-O Vestibular Start: 10/14/22 16:57 Freq: Status: Active Protocol: Document 10/14/22 12:00 DCW (Rec: 10/14/22 17:19 DCW [id number]) Vestibular Assessment Auditory Tests Ruiz Test Within normal limits Rinne Test Negative Air Conduction Results Equal Visual Testing Smooth Pursuits Horizontal WNL Smooth Pursuits Vertical WNL Saccades Horizontal WNL Saccades Vertical WNL Heave Test Positive Bilateral Thrust Head Positive Bilateral DVA (Line Degradation) 4 Vestibular Function Tests Fukuda Test 30? R turn CTSIB Position 1 30 seconds, Mild sway CTSIB Position 2 30 seconds, Mild sway CTSIB Position 3 30 seconds, Mild sway CTSIB Position 4 30 seconds, Moderate sway CTSIB Position 5 Fall Reaction CTSIB Position 6 Fall Reaction PT-OP-Q Treatments Start: 10/14/22 16:57 Freq: Status: Active Protocol: Document 10/28/22 12:00 DCW (Rec: 10/28/22 12:43 KYW [id number]) Gym Equipment Shuttle Balance Red Details Lateral weight shift Therapeutic Exercises Standing Exercises Hip Extension Standing Exercise Name Extension Side bilateral Resistance Blue Other Exercises Resisted Ambulation Other Exercise Name Resisted side-stepping Resistance Blue Neuro Re-Education Treatment Balance Activities Tandem Stance Details Tandem Stance Tandem Ambulation Details Tandem Ambulation Head Turns Details Ambulation with Head Turns Comments Metronome 100 BPM PT-OP-T Assessment and Plan Start: 10/14/22 16:57 Freq: Status: Active Protocol: Document 10/28/22 12:00 DCW (Rec: 10/28/22 12:43 DCW [id number]) Physical Therapy Assessment Impairments Impairments Balance,Coordination, Functional Activities, Vestibular Goals Two Impairment Pt feels off balance when looking up at the [facility] [employer] Scene Investigator Goal (LTG) Pt to report no loss of balance or feeling of instability with quick head turns over a full week. LTG Duration 12/14/22 One Impairment Pt does not have an appropriate home exercise program Short Term Goal (STG) Pt to be independent and compliant with an appropriate HEP STG Duration 11/14/22 Assessment Summary Assessment Discussed importance of consistent compliance with HEP and continual challenges to balance if pt wants to improve , although it will not be an immediate change. Pt reports understanding, feels comfortable with discharge to independent HEP, although as he leaves notes that he doesn' t know how much this will help, if any. Physical Therapy Plan Frequency and Duration Frequency of Treatment 1-2x/week Plan of Care Start Date 10/14/22 Plan of Care End Date 12/14/22 Therapeutic Interventions Therapeutic Interventions Balance Training,Canalithic Repositioning,Home Exercise Program,Neuromuscular Re- education,Patient/Caregiver Education,Self-Care/Home Management,Therapeutic Activities,Therapeutic Exercises,Vestibular Rehabilitation Next Visit Focus/Plan Next Note Type Treatment Note Next Visit Plan Vestibular therapy, positional testing if indicated
== END 2022-10-30 13:33 | disposition home or self-care (01) ==
LOC: PHYS 12:00
PROVIDERS: Absent Provider Family Medicine; Family Provider Family Medicine; PCP Family Medicine; Referring Provider Psychiatry & Neurology Neurology; Visit Provider Psychiatry & Neurology Neurology
DX: R42 Dizziness and giddiness (principal); R26.89 Other abnormalities of gait and mobility; R26.81 Unsteadiness on feet
CPT/HCPCS: 97110; 97112; 97162

== ENCOUNTER → 2022-12-17 08:32 | Outpatient (CLI) | payer MEDICARE, OTHER, SELFPAY ==
[2022-12-17 10:29] LABS: BUN Creatinine Ratio 25.5 (6-22); Blood Urea Nitrogen 27 mg/dL (9-20); Calcium 9.4 mg/dL (8.4-10.2); Carbon Dioxide 30 mmol/L (22-32); Chloride 98 mmol/L (98-107); Estimated Glomerular Filt Rate > 60 mL/min (>60); Glucose 93 mg/dL (80-110); HEMOLYSIS < 15 (0-50); Sodium 138 mmol/L (137-145)
== END ==
PROVIDERS: Family Provider Family Medicine; PCP Family Medicine; Referring Provider Nurse Practitioner; Visit Provider Nurse Practitioner
DX: I50.32 Chronic diastolic (congestive) heart failure (principal); Z51.81 Encounter for therapeutic drug level monitoring; Z79.899 Other long term (current) drug therapy
CPT/HCPCS: 36415; 80048

== ENCOUNTER → 2023-03-17 11:25 | Outpatient (CLI) | payer MEDICARE, SELFPAY ==
[2023-03-17 13:58] LABS: BUN Creatinine Ratio 22.5 (6-22); Blood Urea Nitrogen 25 mg/dL (9-20); Calcium 9.5 mg/dL (8.4-10.2); Carbon Dioxide 31 mmol/L (22-32); Chloride 100 mmol/L (98-107); Estimated Glomerular Filt Rate > 60 mL/min (>60); Glucose 91 mg/dL (80-110); HEMOLYSIS < 15 (0-50); Potassium 4.4 mmol/L (3.4-5.1); Sodium 138 mmol/L (137-145)
== END ==
LOC: LAB 11:31
PROVIDERS: Family Provider Family Medicine; PCP Family Medicine; Referring Provider Nurse Practitioner Family; Visit Provider Nurse Practitioner Family
DX: Z51.81 Encounter for therapeutic drug level monitoring (principal)
CPT/HCPCS: 36415; 80048

== ENCOUNTER → 2023-06-16 14:40 | Outpatient (CLI) | payer MEDICARE, SELFPAY ==
[2023-06-16 15:56] LABS: BUN Creatinine Ratio 27.7 (6-22); Blood Urea Nitrogen 26 mg/dL (9-20); Calcium 9.1 mg/dL (8.4-10.2); Carbon Dioxide 33 mmol/L (22-32); Chloride 103 mmol/L (98-107); Estimated Glomerular Filt Rate > 60 mL/min (>60); Glucose 134 mg/dL (80-110); HEMOLYSIS < 15 (0-50); Potassium 3.7 mmol/L (3.4-5.1); Sodium 140 mmol/L (137-145)
== END ==
PROVIDERS: Family Provider Family Medicine; PCP Family Medicine; Referring Provider Nurse Practitioner; Visit Provider Nurse Practitioner
DX: Z51.81 Encounter for therapeutic drug level monitoring (principal)
CPT/HCPCS: 36415; 80048

== ENCOUNTER → 2023-10-28 07:50 | Outpatient (CLI) | payer MEDICARE, SELFPAY ==
[2023-10-28 08:52] LABS: Influenza A - CEPHEID Flu A NEGATIVE (NEGATIVE); Influenza B - CEPHEID Flu B NEGATIVE (NEGATIVE); Respiratory Syncytial Virus Negative (Negative)
[2023-10-28 08:53] LABS: COVID-19 CEPHEID 4-PLEX PCR POSITIVE (Negative)
== END ==
PROVIDERS: Family Provider Family Medicine; PCP Family Medicine; Referring Provider Physician Assistant Medical; Visit Provider Physician Assistant Medical
DX: Z20.822 Contact with and (suspected) exposure to COVID-19 (principal)
CPT/HCPCS: 0241U

== ENCOUNTER → 2024-02-03 12:54 | Outpatient (CLI) | payer MEDICARE, SELFPAY ==
[2024-02-03 13:43] LABS: BUN Creatinine Ratio 29.3 (6-22); Blood Urea Nitrogen 27 mg/dL (9-20); Calcium 9.2 mg/dL (8.4-10.2); Carbon Dioxide 27 mmol/L (22-32); Chloride 105 mmol/L (98-107); Estimated Glomerular Filt Rate > 60 mL/min (>60); Glucose 147 mg/dL (80-110); HEMOLYSIS < 15 (0-50); Potassium 4.2 mmol/L (3.4-5.1); Sodium 139 mmol/L (137-145)
== END ==
PROVIDERS: Family Provider Family Medicine; PCP Family Medicine; Referring Provider Nurse Practitioner; Visit Provider Nurse Practitioner
DX: Z51.81 Encounter for therapeutic drug level monitoring (principal); Z79.899 Other long term (current) drug therapy
CPT/HCPCS: 36415; 80048

== ENCOUNTER → 2024-05-03 11:58 | Outpatient (CLI) | payer MEDICARE, SELFPAY ==
[2024-05-03 13:16] LABS: BUN Creatinine Ratio 32.3 (6-22); Blood Urea Nitrogen 32 mg/dL (9-20); Calcium 9.2 mg/dL (8.4-10.2); Carbon Dioxide 31 mmol/L (22-32); Chloride 100 mmol/L (98-107); Estimated Glomerular Filt Rate > 60 mL/min (>60); Glucose 106 mg/dL (80-110); HEMOLYSIS < 15 (0-50); Potassium 4.3 mmol/L (3.4-5.1); Sodium 139 mmol/L (137-145)
== END ==
PROVIDERS: Family Provider Family Medicine; PCP Family Medicine; Referring Provider Nurse Practitioner; Visit Provider Nurse Practitioner
DX: I48.0 Paroxysmal atrial fibrillation (principal); Z51.81 Encounter for therapeutic drug level monitoring; Z79.899 Other long term (current) drug therapy
CPT/HCPCS: 36415; 80048

== ENCOUNTER → 2024-08-22 12:06 | Outpatient (CLI) | payer MEDICARE, SELFPAY ==
[2024-08-22 13:08] LABS: Blood Urea Nitrogen 32 mg/dL (9-20); Calcium 9.0 mg/dL (8.4-10.2); Carbon Dioxide 29 mmol/L (22-32); Chloride 101 mmol/L (98-107); Estimated Glomerular Filt Rate > 60 mL/min (>60); Glucose 88 mg/dL (70-99); HEMOLYSIS < 15 (0-50); Potassium 4.2 mmol/L (3.4-5.1); Sodium 137 mmol/L (137-145)
== END ==
PROVIDERS: Family Provider Family Medicine; PCP Family Medicine; Referring Provider Nurse Practitioner; Visit Provider Nurse Practitioner
DX: I48.0 Paroxysmal atrial fibrillation (principal); Z51.81 Encounter for therapeutic drug level monitoring; Z79.899 Other long term (current) drug therapy
CPT/HCPCS: 36415; 80048

== ENCOUNTER → 2024-11-23 11:47 | Outpatient (CLI) | payer MEDICARE, SELFPAY ==
[2024-11-23 13:16] LABS: Blood Urea Nitrogen 27 mg/dL (9-20); Calcium 9.0 mg/dL (8.4-10.2); Carbon Dioxide 29 mmol/L (22-32); Chloride 102 mmol/L (98-107); Estimated Glomerular Filt Rate > 60 mL/min (>60); Glucose 75 mg/dL (70-99); HEMOLYSIS < 15 (0-50); Magnesium 2.3 mg/dL (1.6-2.3); Potassium 4.4 mmol/L (3.4-5.1); Sodium 139 mmol/L (137-145)
== END ==
PROVIDERS: Family Provider Family Medicine; PCP Family Medicine; Referring Provider Nurse Practitioner; Visit Provider Nurse Practitioner
DX: I48.0 Paroxysmal atrial fibrillation (principal); Z51.81 Encounter for therapeutic drug level monitoring; Z79.899 Other long term (current) drug therapy
CPT/HCPCS: 36415; 80048; 83735

== ENCOUNTER → 2024-12-21 10:58 | Outpatient (CLI) | payer MEDICARE, SELFPAY ==
[2024-12-21 11:42] LABS: Add Manual Diff / Slide Review NO; Hematocrit 43.0 % (41-53); Hemoglobin 14.5 g/dL (13.5-17.5); Lymphocytes Absolute Auto 1400 /uL (1100-4500); Mean Corpuscular HGB Conc 33.8 % (30-36); Mean Corpuscular Hemoglobin 32.5 PG (26-34); Mean Corpuscular Volume 96.1 fL (80-100); Platelet Count 183 X10^3/uL (150-400)
[2024-12-21 12:18] LABS: Alanine Aminotransferase 22 IU/L (<50); Albumin 4.7 g/dL (3.5-5.0); Albumin Globulin Ratio 1.7 (1.0-2.8); Alkaline Phosphatase 44 U/L (38-126); Globulin 2.8 g/dL (1.7-4.1); HEMOLYSIS < 15 (0-50); Total Protein 7.5 g/dL (6.3-8.2)
[2024-12-21 12:46] LABS: TSH w/ Reflex to FT4 1.53 uIU/mL (0.47-4.68)
[2024-12-21 13:06] LABS: Vitamin B12 719 pg/mL (239-931)
== END ==
PROVIDERS: PCP Family Medicine; Referring Provider Physician Assistant; Visit Provider Physician Assistant
DX: R19.4 Change in bowel habit (principal); Z12.5 Encounter for screening for malignant neoplasm of prostate; R63.4 Abnormal weight loss
CPT/HCPCS: 36415; 80076; 82607; 84443; 85025; G0103